=== PATIENT | female | born 1955 | race Caucasian/White ===

== ENCOUNTER → 2017-09-20 | Outpatient (CLI) | payer OTHER ==
[~2017-09-20] MED LIST: ALEVE220 MG PO; FLOVENT 11120 INHALA IH; FLOVENT 22120 INHALA IH; FORADIL AEROLI12 MCG IH; MYCOSTATIN15 GM PO; PREDNISONE10 MG PO; PROZAC20 MG PO; PROZAC40 MG PO; VENTOLIN HFA18 GM IH
== END | disposition home or self-care (01) ==
DX: M17.12 Unilateral primary osteoarthritis, left knee (principal); M25.562 Pain in left knee; M25.662 Stiffness of left knee, not elsewhere classified; Z74.1 Need for assistance with personal care
CPT/HCPCS: 97161 GP; 97165 GO; 97530 GP; 97535 GO

== ENCOUNTER 2017-10-09 20:46 | Inpatient (IN) | payer OTHER ==
[~2017-10-09] VITALS: Ht 167.6 cm; Wt 101.0 kg
[~2017-10-09 20:46] MED LIST changes: +ADVAIR 100/501 DISK IH; +EXCEDRIN EXTRA1 EACH PO; +PANTOPRAZOLE SO40 MG PO
[2017-10-10 05:58] VITALS: BP 152/87
[2017-10-10 11:41] VITALS: BP 108/58
[2017-10-10 13:30] VITALS: BP 133/64
[2017-10-10 15:45] VITALS: BP 117/58
[2017-10-10 18:14] VITALS: BP 133/62
[2017-10-10 20:20] VITALS: BP 133/64
[2017-10-11 00:25] VITALS: BP 120/56
[2017-10-11 03:54] VITALS: BP 138/83
[2017-10-11 07:52] VITALS: BP 132/59
[2017-10-11 11:48] VITALS: BP 136/60
[2017-10-11 15:30] VITALS: BP 134/60
[2017-10-11 20:16] VITALS: BP 150/65
[2017-10-12] VITALS: BP 112/52
[2017-10-12 04:00] VITALS: BP 156/69
[2017-10-12 08:11] VITALS: BP 145/68
[2017-10-12] MEDS ORDERED: DOCUSATE SODIU100 MG PO (09:57)
[2017-10-12] MEDS ORDERED: ELIQUIS2.5 MG PO (09:58)
[2017-10-12] MEDS ORDERED: ENDOCET 5-3251 EACH PO (09:58)
[2017-10-12 12:15] VITALS: BP 160/71
== END 2017-10-12 13:05 | DRG 470 ==
LOC: ENRESERV 20:46 → 2SOUTH 10-10 05:06 → 3WEST 10-10 10:59 → 2SOUTH 10-10 13:19 → 3WEST 10-12 13:05
PROC: 0SRD0J9 Replacement of Left Knee Joint with Synthetic Substitute, Cemented, Open Approach (ICD-10-PCS; principal; 2017-10-10)
DX: M17.12 Unilateral primary osteoarthritis, left knee (principal); J45.909 Unspecified asthma, uncomplicated; K22.70 Barrett's esophagus without dysplasia
CPT/HCPCS: 99202; C1713; J0131; J0690; J1885; J2250; J2795; J7050; J7120; Q0175; S0020

== ENCOUNTER 2017-11-08 23:34 | Emergency (ER) | payer OTHER ==
[~2017-11-08] VITALS: Ht 170.2 cm; Wt 95.3 kg
[~2017-11-08 23:34] MED LIST changes: +DOCUSATE SODIU100 MG PO; +ELIQUIS2.5 MG PO; +ENDOCET 5-3251 EACH PO
[2017-11-09 00:27] LABS: BASOPHIL (%) 0.6 % (0-1); EOSINOPHIL (%) 3.4 % (0-5); EOSINOPHIL COUNT 0.2 K/uL (0-0.3); HEMATOCRIT 40.1 % (36.0-46.0); HEMOGLOBIN 12.8 G/DL (11.9-15.5); IMMATURE GRANULOCYTE (%) 0.2 % (0.0-0.7); LYMPHOCYTE COUNT 0.8 K/uL (1.0-2.8); MCH 27.6 PG (29.0-34.0); MCHC 31.9 G/DL (30.0-36.0); MCV 86.6 FL (83-99); MONOCYTE COUNT 0.6 K/uL (0-0.8); NEUTROPHIL (%) 73.8 % (45-76); NEUTROPHIL COUNT 4.6 K/uL (1.8-6.4); PLATELET COUNT 232 K/uL (156-360); RBC DIS.WIDTH-CV 13.6 % (11.8-14.6); RBC DIS.WIDTH-SD 42.4 % (39-53); RED BLOOD COUNT 4.63 M/uL (3.80-5.20); WHITE BLOOD COUNT 6.2 K/uL (4.1-10.2)
[2017-11-09 00:42] LABS: ALBUMIN 4.3 g/dL (3.2-4.8); CHLORIDE 108 mEq/L (99-109); POTASSIUM 4.1 mEq/L (3.7-5.4)
[2017-11-09 00:43] LABS: SODIUM 142 mEq/L (136-147)
[2017-11-09 00:45] LABS: GLUCOSE 119 mg/dL (70-99); TOTAL PROTEIN 7.3 g/dL (6.4-8.3)
[2017-11-09 00:47] LABS: TOTAL BILIRUBIN 0.5 mg/dL (0.0-1.0)
[2017-11-09 00:48] LABS: ALKALINE PHOSPHATASE 73 IU/L (3-129); SERUM ETHYL ALCOHOL < 10 mg/dL
[2017-11-09 00:49] LABS: CREATININE 0.8 mg/dL (0.6-1.3); GFR ESTIMATE (CALCULATED) > 59 mL/min/
[2017-11-09 00:50] LABS: AST (GOT) 20 IU/L (2-34); UREA NITROGEN (BUN) 9 mg/dL (9-23)
[2017-11-09 00:51] LABS: ALT (GPT) 17 IU/L (3-49)
[2017-11-09 01:24] LABS: APPEARANCE CLEAR ((CLEAR)); BILIRUBIN NEGATIVE; BLOOD NEGATIVE; COLOR YELLOW ((YELLOW)); GLUCOSE (STRIP) NEGATIVE; KETONES 5; LEUKOCYTES NEGATIVE; NITRITE NEGATIVE; PROTEIN (STRIP) NEGATIVE; SPECIFIC GRAVITY 1.011 (1.000-1.030); UCUL ADDED? NO; UROBILINOGEN 0.2 MG/DL (0.2-1.0)
[2017-11-09] MEDS ORDERED: AMBIEN5 MG PO (01:43)
[2017-11-09 02:12] VITALS: BP 158/93
[2017-11-09 02:20] LABS: AMPHETAMINE NEGATIVE (500 ng/mL); BARBITURATES NEGATIVE (200 ng/mL); BENZODIAZEPINES NEGATIVE (150 ng/mL); BUPRENORPHINE NEGATIVE (10 ng/mL); COCAINE NEGATIVE (150 ng/mL); METHADONE NEGATIVE (200 ng/mL); METHAMPHETAMINE NEGATIVE (500 ng/mL); OPIATES (MORPHINE) NEGATIVE (100 ng/mL); OXYCODONE NEGATIVE (100 ng/mL); PHENCYCLIDINE NEGATIVE (25 ng/mL); PROPOXYPHENE NEGATIVE (300 ng/mL); THC CANNABINOIDS NEGATIVE (50 ng/mL); TRICYCLIC ANTIDEPRESSANTS NEGATIVE (300 ng/mL)
== END 2017-11-09 02:13 | disposition home or self-care (01) ==
LOC: EME 23:34
PROVIDERS: Emergency Medicine
DX: F32.9 Major depressive disorder, single episode, unspecified (principal); G47.00 Insomnia, unspecified; F43.21 Adjustment disorder with depressed mood; Z96.652 Presence of left artificial knee joint; J45.909 Unspecified asthma, uncomplicated; K21.9 Gastro-esophageal reflux disease without esophagitis
CPT/HCPCS: 80053; 81003; 85025; 90839; 99281; 99283; G0480